=== PATIENT | female | born 1940 | race Caucasian/White ===

== ENCOUNTER 2016-10-23 08:07 | Outpatient (CLI) | payer MEDICARE ==
[2016-10-23 09:17] LABS: ALT (SGPT) 14 U/L (0-55); AST (SGOT) 16 U/L (5-34); Alkaline Phosphatase 58 U/L (40-150); Anion Gap 15 mmol/L (10-20); BUN (Urea Nitrogen) 13 mg/dL (9.8-20.1); Bilirubin, Total 0.7 mg/dL (0.2-1.2); Calc. Creatinine Clearance 0 mL/min (70-130); Calcium 9.1 mg/dL (7.8-10.44); Carbon Dioxide 28 mmol/L (23-31); Chloride 104 mmol/L (98-107); Cholesterol 222 mg/dL (< 200 Desired); Estimated GFR-MDRD 62; Globulin 2.9 g/dL (2.4-3.5); Glucose 99 mg/dL (83-110); HDL Cholesterol 73 mg/dL (>60 Neg Risk); LDL Cholesterol, Calculated 135 mg/dL; Potassium 4.9 mmol/L (3.5-5.1); Protein, Total 6.9 g/dL (5.8-8.1); Sodium 142 mmol/L (136-145); Triglycerides 70 mg/dL (Less than 150)
== END 2016-10-23 08:08 ==
LOC: MADLABBHPM 08:07
PROVIDERS: ATTEND Family Medicine
DX: E03.9 Hypothyroidism, unspecified (principal)
CPT/HCPCS: 36415; 80053; 80061; 84443

== ENCOUNTER 2017-07-30 10:15 | Outpatient (CLI) | payer MEDICARE ==
--- NOTE | 2017-07-30 11:54 | RAD ---
TWO VIEWS CHEST: Date: 07-30-17 Comparison: None. History: Pleuritic chest pain. FINDINGS: No pneumothorax, pleural fluid, focal consolidation or alveolar edema. Cardiac silhouette is promine nt on the lateral view. There is multilevel disc space narrowing and anterior osteophyte formation w ithin the mid/distal thoracic spine. The lungs are mildly hyperinflated with mild increased intersti tial density. IMPRESSION: Chronic appearing findings as detailed above. No focal consolidation or alveolar edema. POS: [facility]
== END 2017-07-30 10:16 | disposition home or self-care (01) ==
LOC: MADRAD 10:15
PROVIDERS: ATTEND Family Medicine
DX: R07.81 Pleurodynia (principal)
CPT/HCPCS: 71020

== ENCOUNTER 2019-05-07 15:27 | Outpatient (CLI) | payer MEDICARE ==
[2019-05-07 16:00] LABS: Anion Gap 16 mmol/L (10-20); BUN (Urea Nitrogen) 19 mg/dL (9.8-20.1); Calc. Creatinine Clearance 0 mL/min (70-130); Calcium 8.5 mg/dL (7.8-10.44); Carbon Dioxide 28 mmol/L (23-31); Chloride 99 mmol/L (98-107); Estimated GFR-MDRD 60; Glucose 99 mg/dL (83-110); Potassium 3.3 mmol/L (3.5-5.1); Sodium 140 mmol/L (136-145)
== END 2019-05-07 15:28 | disposition home or self-care (01) ==
LOC: MADLABBHPM 15:27
PROVIDERS: ATTEND Family Medicine
DX: E87.6 Hypokalemia (principal); R60.0 Localized edema
CPT/HCPCS: 36415; 80048

== ENCOUNTER 2019-08-13 09:49 | Outpatient (CLI) | payer MEDICARE ==
[2019-08-13 10:12] LABS: Anion Gap 14 mmol/L (10-20); BUN (Urea Nitrogen) 18 mg/dL (9.8-20.1); Calc. Creatinine Clearance 0 mL/min (70-130); Calcium 8.7 mg/dL (7.8-10.44); Carbon Dioxide 30 mmol/L (23-31); Chloride 102 mmol/L (98-107); Estimated GFR-MDRD 48; Glucose 122 mg/dL (83-110); Potassium 3.7 mmol/L (3.5-5.1); Sodium 142 mmol/L (136-145)
== END 2019-08-13 09:50 | disposition home or self-care (01) ==
LOC: MADLABBHPM 09:49
PROVIDERS: ATTEND Family Medicine
DX: R60.0 Localized edema (principal); E87.6 Hypokalemia
CPT/HCPCS: 36415; 80048

== ENCOUNTER 2019-09-12 10:45 | Outpatient (CLI) | payer MEDICARE ==
[2019-09-12 11:28] LABS: ALT (SGPT) 9 U/L (8-55); AST (SGOT) 14 U/L (5-34); Alkaline Phosphatase 74 U/L (40-110); Anion Gap 14 mmol/L (10-20); BUN (Urea Nitrogen) 23 mg/dL (9.8-20.1); Bilirubin, Total 0.4 mg/dL (0.2-1.2); Calc. Creatinine Clearance 0 mL/min (70-130); Calcium 8.8 mg/dL (7.8-10.44); Carbon Dioxide 25 mmol/L (23-31); Cardiac Risk 3.2 (Less than 4.5); Chloride 109 mmol/L (98-107); Cholesterol 179 mg/dl (< 200 Desired); Estimated GFR-MDRD 59; Globulin 3.1 g/dL (2.4-3.5); Glucose 111 mg/dL (83-110); HDL Cholesterol 56 mg/dL (>60 Neg Risk); LDL Cholesterol, Calculated 112 mg/dL; Potassium 4.6 mmol/L (3.5-5.1); Protein, Total 7.1 g/dL (6.0-8.3); Sodium 143 mmol/L (136-145); Triglycerides 53 mg/dL (Less than 150)
[2019-09-12 13:10] LABS: White Blood Cell (WBC) Count 9.1 thou/uL (4.8-10.8)
[2019-09-12 13:11] LABS: Hemoglobin 5.9 g/dL (12.0-16.0); Mean Corpuscular HGB CONC 26.1 g/dL (32.0-36.0); Mean Corpuscular Hemoglobin 16.1 pg (27.0-31.0); Mean Corpuscular Volume 61.3 fL (78.0-98.0)
[2019-09-12 13:12] LABS: Manual Diff?? YES; Mean Platelet Volume 9.6 fL (7.4-10.4); Platelet Count 305 thou/uL (130-400); RBC Distribution Width 19.3 % (11.5-14.5)
[2019-09-12 13:13] LABS: Anisocytosis MODERATE=16-30 cells (100X) (0-5/hpf); Eosinophils 3 % (0-10); Hypochromia MODERATE=16-30 cells (100X) (0-5/hpf); Lymphocytes 18 % (21-51); MDiff Complete? YES; Microcytosis MODERATE=15-30 cells (100X) (0-5/hpf); Monocytes 5 % (0-10); Neutrophil 74 % (42-75); Ovalocytes SLIGHT = 2-5 cells (100X) (0-1/hpf); Poikilocytosis SLIGHT = 6-15 cells (100X) (0-5/hpf)
[2019-09-12 13:14] LABS: Tear Drops SLIGHT = 2-5 cells (100X) (0-1/hpf)
[2019-09-12 15:26] LABS: Iron 16 ug/dL (50-170)
[2019-09-12 15:43] LABS: Ferritin Less than 2.00 ng/mL (10-291)
== END 2019-09-12 10:46 | disposition home or self-care (01) ==
LOC: MADLAB 10:45
PROVIDERS: ATTEND Family Medicine
DX: G25.81 Restless legs syndrome (principal); E03.9 Hypothyroidism, unspecified; E78.00 Pure hypercholesterolemia, unspecified; I10 Essential (primary) hypertension
CPT/HCPCS: 36415; 80053; 80061; 82728; 83540; 84443; 85025; 85060

== ENCOUNTER 2019-09-12 13:08 | Emergency (ER) | payer MEDICARE ==
[~2019-09-12 13:08] MED LIST: Sodium Chloride 0.9% 500 ML BAG ONE
[2019-09-12 13:52] LABS: PTT 27.2 SEC (22.9-36.1); Prothrombin Time 13.5 SEC (12.0-14.7)
[2019-09-12 14:03] LABS: ALT (SGPT) 8 U/L (8-55); AST (SGOT) 13 U/L (5-34); Albumin 3.7 g/dL (3.4-4.8); Alkaline Phosphatase 67 U/L (40-110); Anion Gap 13 mmol/L (10-20); BUN (Urea Nitrogen) 23 mg/dL (9.8-20.1); Bilirubin, Total 0.4 mg/dL (0.2-1.2); Calc. Creatinine Clearance 0 mL/min (70-130); Calcium 8.6 mg/dL (7.8-10.44); Carbon Dioxide 25 mmol/L (23-31); Chloride 108 mmol/L (98-107); Estimated GFR-MDRD 57; Globulin 3.2 g/dL (2.4-3.5); Glucose 128 mg/dL (83-110); Protein, Total 6.9 g/dL (6.0-8.3); Sodium 142 mmol/L (136-145)
[2019-09-12 14:05] LABS: #Basophils 0.1 thou/uL (0.0-0.2); #Eosinphils 0.4 thou/uL (0.0-0.7); #Lymphocytes 1.3 thou/uL (1.20-3.40); #Monocytes 0.6 thou/uL (0.11-0.59); #Neutrophils 4.8 thou/uL (1.40-6.50); %Basophils 1.7 % (0.0-1.0); %Eosinophils 5.7 % (0.0-10.0); %Lymphocytes 17.6 % (21.0-51.0); %Monocytes 7.7 % (0.0-10.0); %Neutrophils 67.3 % (42.0-75.0); Hemoglobin 5.4 g/dL (12.0-16.0); Mean Corpuscular HGB CONC 26.1 g/dL (32.0-36.0); Mean Corpuscular Hemoglobin 16.2 pg (27.0-31.0); Mean Corpuscular Volume 62.2 fL (78.0-98.0); Mean Platelet Volume 10.2 fL (7.4-10.4); Platelet Count 274 thou/uL (130-400); RBC Distribution Width 19.6 % (11.5-14.5); Red Blood Cell (RBC) Count 3.34 mill/uL (4.20-5.40); White Blood Cell (WBC) Count 7.1 thou/uL (4.8-10.8)
[2019-09-12] MEDS ORDERED: Furosemide 20 MG/2 ML VIAL ONE (14:26)
--- NOTE | 2019-09-12 14:32 | RAD ---
Exam: Chest one view: HISTORY: Dyspnea COMPARISON: 07/30/2017 FINDINGS: Minimal cardiomegaly with bilateral vascular congestion. No confluent lobar pneumonia. Less than opti mal inspiration. IMPRESSION: Cardiomegaly with bilateral vascular congestion. No confluent pneumonia.
== END 2019-09-12 15:27 | disposition short-term general hospital (02) ==
LOC: MADERS 13:08
DX: E87.70 Fluid overload, unspecified (principal); D64.9 Anemia, unspecified; E03.9 Hypothyroidism, unspecified; I10 Essential (primary) hypertension; F41.9 Anxiety disorder, unspecified; Z79.899 Other long term (current) drug therapy
CPT/HCPCS: 36430; 71045; 80061; 82274; 82728; 83540; 83880; 84484; 85610; 85730; 86850; 86900; 86901; 86920; 93005; P9016; 36415; 80053; 84443; 85025; 85060; 96374; J1940; J7050

== ENCOUNTER 2019-09-28 14:36 | Outpatient (CLI) | payer MEDICARE ==
[2019-09-28 14:51] LABS: #Basophils 0.1 thou/uL (0.0-0.2); #Eosinphils 0.4 thou/uL (0.0-0.7); #Lymphocytes 1.8 thou/uL (1.20-3.40); #Monocytes 0.7 thou/uL (0.11-0.59); #Neutrophils 5.5 thou/uL (1.40-6.50); %Basophils 1.3 % (0.0-1.0); %Lymphocytes 21.3 % (21.0-51.0); %Monocytes 7.7 % (0.0-10.0); %Neutrophils 64.7 % (42.0-75.0); Anisocytosis SLIGHT = 6-15 cells (100X) (0-5/hpf); Hemoglobin 10.2 g/dL (12.0-16.0); Hypochromia MODERATE=16-30 cells (100X) (0-5/hpf); MDiff Complete? YES; Mean Corpuscular HGB CONC 27.5 g/dL (32.0-36.0); Mean Corpuscular Hemoglobin 21.4 pg (27.0-31.0); Mean Corpuscular Volume 77.7 fL (78.0-98.0); Mean Platelet Volume 7.8 fL (7.4-10.4); Microcytosis SLIGHT = 6-15 cells (100X) (0-5/hpf); Ovalocytes SLIGHT = 2-5 cells (100X) (0-1/hpf); Platelet Count 395 thou/uL (130-400); Platelet Morphology Comment Appears Adequate; RBC Distribution Width 30.9 % (11.5-14.5); Red Blood Cell (RBC) Count 4.77 mill/uL (4.20-5.40); White Blood Cell (WBC) Count 8.6 thou/uL (4.8-10.8)
== END 2019-09-28 14:37 | disposition home or self-care (01) ==
LOC: MADLAB 14:36
PROVIDERS: ATTEND Family Medicine
DX: D64.9 Anemia, unspecified (principal)
CPT/HCPCS: 36415; 85025

== ENCOUNTER 2020-09-26 08:45 | Emergency (ER) | payer MEDICARE ==
--- NOTE | 2020-09-26 09:25 | RAD ---
XR Chest 1 View Portable History: Weakness Comparison: Radiograph September 12, 2019 Findings: Heart size mildly enlarged. Trace effusions. Mild pulmonary venous congestion. No pneumotho rax. Impression: Cardiomegaly and mild pulmonary venous congestion.
[2020-09-26 09:30] LABS: #Basophils 0.1 thou/uL (0.0-0.2); #Eosinphils 0.3 thou/uL (0.0-0.7); #Lymphocytes 1.5 thou/uL (1.20-3.40); #Monocytes 0.6 thou/uL (0.11-0.59); #Neutrophils 4.6 thou/uL (1.40-6.50); %Basophils 1.4 % (0.0-1.0); %Eosinophils 4.3 % (0.0-10.0); %Lymphocytes 21.1 % (21.0-51.0); %Monocytes 8.2 % (0.0-10.0); Hemoglobin 6.1 g/dL (12.0-16.0); Mean Corpuscular HGB CONC 29.1 g/dL (32.0-36.0); Mean Corpuscular Hemoglobin 20.8 pg (27.0-31.0); Mean Corpuscular Volume 71.3 fL (78.0-98.0); Mean Platelet Volume 9.2 fL (7.4-10.4); Platelet Count 205 thou/uL (130-400); RBC Distribution Width 20.4 % (11.5-14.5); Red Blood Cell (RBC) Count 2.95 mill/uL (4.20-5.40)
[2020-09-26 09:45] LABS: ALT (SGPT) 22 U/L (8-55); AST (SGOT) 20 U/L (5-34); Albumin 3.3 g/dL (3.4-4.8); Alkaline Phosphatase 59 U/L (40-110); Anion Gap 14 mmol/L (10-20); BUN (Urea Nitrogen) 26 mg/dL (9.8-20.1); Bilirubin, Total 0.4 mg/dL (0.2-1.2); Calc. Creatinine Clearance 0 mL/min (70-130); Carbon Dioxide 23 mmol/L (23-31); Chloride 110 mmol/L (98-107); Globulin 2.9 g/dL (2.4-3.5); Glucose 107 mg/dL (83-110); Potassium 3.7 mmol/L (3.5-5.1); Protein, Total 6.2 g/dL (6.0-8.3); Sodium 143 mmol/L (136-145)
[2020-09-26 09:56] LABS: Anisocytosis SLIGHT = 6-15 cells (100X) (0-5/hpf); Hypochromia SLIGHT = 6-15 cells (100X) (0-5/hpf); Ovalocytes SLIGHT = 2-5 cells (100X) (0-1/hpf); Poikilocytosis SLIGHT = 6-15 cells (100X) (0-5/hpf); Schistocytes SLIGHT = 2-5 cells (100X) (0-1/hpf)
== END 2020-09-26 11:20 | disposition short-term general hospital (02) ==
LOC: MADERS 08:45
DX: D64.9 Anemia, unspecified (principal); I48.91 Unspecified atrial fibrillation; M54.2 Cervicalgia; R00.1 Bradycardia, unspecified; E03.9 Hypothyroidism, unspecified; I10 Essential (primary) hypertension
CPT/HCPCS: 71045; 80053; 82274; 83605; 84484; 85025; 93005; 94760

== ENCOUNTER 2022-01-01 19:33 | Inpatient (IN) | payer MEDICARE ==
[2022-01-01] MEDS ORDERED: Milk Of Magnesia 30 ML UDCUP PO PRN (21:36)
[2022-01-01] MEDS ORDERED: cloNIDine 0.1 MG TAB PO PRN (21:36)
[2022-01-01] MEDS ORDERED: Calcium Carbonate 500 MG ChewTAB PO PRN (21:36)
[2022-01-01 21:38] VITALS: BMI 25.4
[2022-01-01] MEDS: traMADol HCl 50 MG TAB PO SCH (23:42)
[2022-01-02] MEDS: Levothyroxine Sodium 75 MCG TAB PO SCH (05:07)
[2022-01-02] MEDS: traMADol HCl 50 MG TAB PO SCH ×2 (05:09→11:43)
[2022-01-02 05:50] LABS: #Basophils 0.1 thou/uL (0.0-0.2); #Eosinphils 0.3 thou/uL (0.0-0.7); #Monocytes 0.5 thou/uL (0.11-0.59); #Neutrophils 3.5 thou/uL (1.40-6.50); %Basophils 2.1 % (0.0-1.0); %Eosinophils 6.2 % (0.0-10.0); %Lymphocytes 17.6 % (21.0-51.0); %Monocytes 9.7 % (0.0-10.0); %Neutrophils 64.5 % (42.0-75.0); Hemoglobin 11.7 g/dL (12.0-16.0); Mean Corpuscular HGB CONC 31.6 g/dL (32.0-36.0); Mean Corpuscular Hemoglobin 30.4 pg (27.0-31.0); Mean Corpuscular Volume 96.3 fL (78.0-98.0); Mean Platelet Volume 8.2 fL (7.4-10.4); Platelet Count 223 thou/uL (130-400); RBC Distribution Width 17.6 % (11.5-14.5); Red Blood Cell (RBC) Count 3.85 mill/uL (4.20-5.40); White Blood Cell (WBC) Count 5.4 thou/uL (4.8-10.8)
[2022-01-02 06:15] LABS: Anion Gap 15 mmol/L (10-20); BUN (Urea Nitrogen) 14 mg/dL (9.8-20.1); Calc. Creatinine Clearance 60 mL/min (70-130); Calcium 9.2 mg/dL (7.8-10.44); Carbon Dioxide 33 mmol/L (23-31); Chloride 94 mmol/L (98-107); Glucose 98 mg/dL (83-110); Potassium 3.6 mmol/L (3.5-5.1); Sodium 138 mmol/L (136-145)
[2022-01-02] MEDS: Docusate 100 MG CAP PO SCH ×2 (08:04→20:17)
[2022-01-02] MEDS: Furosemide 20 MG TAB PO SCH (08:04)
[2022-01-02] MEDS: Aspirin 81 mg Enteric Coated Tablet PO SCH ×2 (08:04→20:17)
[2022-01-02] MEDS: Cholecalciferol 1,000 UNITS (25 MCG) TAB PO SCH (08:04)
[2022-01-02] MEDS: Ferrous Sulfate 325 MG TAB PO SCH (08:04)
[2022-01-02] MEDS: Saccharomyces boulardii 250 MG CAP PO SCH (08:04)
[2022-01-02] MEDS: Senokot 8.6 MG TAB PO SCH ×2 (08:04→20:17)
[2022-01-02] MEDS: hydrALAZINE 25 MG TAB PO SCH ×3 (08:04→20:18)
[2022-01-02] MEDS: traMADol HCl 50 MG TAB PO PRN (08:05)
[2022-01-02] MEDS: Polyethylene Glycol 3350 17 GM Packet PO SCH (08:06)
[2022-01-02] MEDS ORDERED: Enoxaparin Sodium 30 MG/0.3 ML SYRINGE SC SCH (09:00)
[2022-01-02] MEDS: Acetaminophen 325 MG TAB PO PRN (10:01)
[2022-01-02 14:24] LABS: SARS-CoV-2 PCR by NAA Not Detected (NotDetected)
[2022-01-02] MEDS: HYDROcodone/Acetaminophen 5/325 mg Tablet PO SCH ×2 (18:08→23:54)
[2022-01-02] MEDS: Citalopram 20 MG TAB PO SCH (20:17)
[2022-01-03] MEDS: HYDROcodone/Acetaminophen 5/325 mg Tablet PO SCH ×3 (05:25→17:36)
[2022-01-03] MEDS: Levothyroxine Sodium 75 MCG TAB PO SCH (05:26)
[2022-01-03] MEDS: Aspirin 81 mg Enteric Coated Tablet PO SCH ×2 (08:13→21:21)
[2022-01-03] MEDS: Furosemide 20 MG TAB PO SCH (08:13)
[2022-01-03] MEDS: Enoxaparin Sodium 40 MG/0.4 ML SYRINGE SC SCH (08:13)
[2022-01-03] MEDS: Docusate 100 MG CAP PO SCH ×2 (08:13→21:18)
[2022-01-03] MEDS: Ferrous Sulfate 325 MG TAB PO SCH (08:13)
[2022-01-03] MEDS: hydrALAZINE 25 MG TAB PO SCH ×3 (08:13→21:18)
[2022-01-03] MEDS: Saccharomyces boulardii 250 MG CAP PO SCH (08:13)
[2022-01-03] MEDS: Senokot 8.6 MG TAB PO SCH ×2 (08:13→21:21)
[2022-01-03] MEDS: Cholecalciferol 1,000 UNITS (25 MCG) TAB PO SCH (08:13)
[2022-01-03] MEDS: Polyethylene Glycol 3350 17 GM Packet PO SCH (08:14)
[2022-01-03] MEDS: traMADol HCl 50 MG TAB PO PRN ×2 (13:55→21:19)
[2022-01-03] MEDS: Citalopram 20 MG TAB PO SCH (21:18)
[2022-01-04] MEDS: HYDROcodone/Acetaminophen 5/325 mg Tablet PO SCH ×4 (00:21→17:53)
[2022-01-04] MEDS: Levothyroxine Sodium 75 MCG TAB PO SCH (06:21)
[2022-01-04] MEDS: Docusate 100 MG CAP PO SCH ×2 (09:25→22:11)
[2022-01-04] MEDS: Polyethylene Glycol 3350 17 GM Packet PO SCH (09:25)
[2022-01-04] MEDS: Saccharomyces boulardii 250 MG CAP PO SCH (09:26)
[2022-01-04] MEDS: Aspirin 81 mg Enteric Coated Tablet PO SCH ×2 (09:26→22:11)
[2022-01-04] MEDS: Cholecalciferol 1,000 UNITS (25 MCG) TAB PO SCH (09:26)
[2022-01-04] MEDS: hydrALAZINE 25 MG TAB PO SCH ×3 (09:26→22:11)
[2022-01-04] MEDS: Furosemide 20 MG TAB PO SCH (09:26)
[2022-01-04] MEDS: Ferrous Sulfate 325 MG TAB PO SCH (09:26)
[2022-01-04] MEDS: Senokot 8.6 MG TAB PO SCH ×2 (09:27→22:12)
[2022-01-04] MEDS: Enoxaparin Sodium 40 MG/0.4 ML SYRINGE SC SCH (09:27)
[2022-01-04] MEDS: Acetaminophen 325 MG TAB PO PRN (15:11)
[2022-01-04] MEDS ORDERED: Thiamine 100 MG TAB PO SCH (21:45)
[2022-01-04] MEDS: Citalopram 20 MG TAB PO SCH ×2 (22:11→22:19)
[2022-01-05] MEDS: HYDROcodone/Acetaminophen 5/325 mg Tablet PO SCH ×4 (00:55→17:41)
[2022-01-05] MEDS: Levothyroxine Sodium 75 MCG TAB PO SCH (05:46)
[2022-01-05] MEDS: Saccharomyces boulardii 250 MG CAP PO SCH (08:39)
[2022-01-05] MEDS: Senokot 8.6 MG TAB PO SCH ×2 (08:40→21:38)
[2022-01-05] MEDS: hydrALAZINE 25 MG TAB PO SCH ×3 (08:40→21:39)
[2022-01-05] MEDS: Cholecalciferol 1,000 UNITS (25 MCG) TAB PO SCH (08:40)
[2022-01-05] MEDS: Docusate 100 MG CAP PO SCH ×2 (08:40→21:38)
[2022-01-05] MEDS: Aspirin 81 mg Enteric Coated Tablet PO SCH ×2 (08:40→21:38)
[2022-01-05] MEDS: Acetaminophen 325 MG TAB PO PRN (08:40)
[2022-01-05] MEDS: Polyethylene Glycol 3350 17 GM Packet PO SCH (08:41)
[2022-01-05] MEDS: Furosemide 20 MG TAB PO SCH (08:41)
[2022-01-05] MEDS: Enoxaparin Sodium 40 MG/0.4 ML SYRINGE SC SCH (08:42)
[2022-01-05] MEDS: Ferrous Sulfate 325 MG TAB PO SCH (08:44)
[2022-01-05] MEDS: Citalopram 20 MG TAB PO SCH (21:38)
[2022-01-06] MEDS: HYDROcodone/Acetaminophen 5/325 mg Tablet PO SCH ×5 (00:23→23:23)
[2022-01-06] MEDS: Levothyroxine Sodium 75 MCG TAB PO SCH (05:53)
[2022-01-06] MEDS: Saccharomyces boulardii 250 MG CAP PO SCH (08:13)
[2022-01-06] MEDS: Enoxaparin Sodium 40 MG/0.4 ML SYRINGE SC SCH (08:14)
[2022-01-06] MEDS: Ferrous Sulfate 325 MG TAB PO SCH (08:14)
[2022-01-06] MEDS: Furosemide 20 MG TAB PO SCH (08:14)
[2022-01-06] MEDS: Cholecalciferol 1,000 UNITS (25 MCG) TAB PO SCH (08:14)
[2022-01-06] MEDS: Aspirin 81 mg Enteric Coated Tablet PO SCH ×2 (08:14→20:43)
[2022-01-06] MEDS: Docusate 100 MG CAP PO SCH ×2 (08:14→20:43)
[2022-01-06] MEDS: hydrALAZINE 25 MG TAB PO SCH ×3 (08:14→20:43)
[2022-01-06] MEDS: Senokot 8.6 MG TAB PO SCH ×2 (08:15→20:43)
[2022-01-06] MEDS: Polyethylene Glycol 3350 17 GM Packet PO SCH (08:15)
[2022-01-06] MEDS: traMADol HCl 50 MG TAB PO PRN ×2 (08:20→20:42)
[2022-01-06] MEDS: Citalopram 20 MG TAB PO SCH (20:43)
[2022-01-07] MEDS: HYDROcodone/Acetaminophen 5/325 mg Tablet PO SCH ×4 (05:00→23:36)
[2022-01-07] MEDS: Levothyroxine Sodium 75 MCG TAB PO SCH (05:01)
[2022-01-07] MEDS: traMADol HCl 50 MG TAB PO PRN ×2 (05:55→19:07)
[2022-01-07] MEDS: Senokot 8.6 MG TAB PO SCH ×2 (09:36→09:37)
[2022-01-07] MEDS: Ferrous Sulfate 325 MG TAB PO SCH (09:36)
[2022-01-07] MEDS: Furosemide 20 MG TAB PO SCH ×2 (09:36→09:37)
[2022-01-07] MEDS: Aspirin 81 mg Enteric Coated Tablet PO SCH ×2 (09:37→20:27)
[2022-01-07] MEDS: Saccharomyces boulardii 250 MG CAP PO SCH (09:37)
[2022-01-07] MEDS: hydrALAZINE 25 MG TAB PO SCH ×3 (09:37→20:30)
[2022-01-07] MEDS: Docusate 100 MG CAP PO SCH ×2 (09:38→20:30)
[2022-01-07] MEDS: Enoxaparin Sodium 40 MG/0.4 ML SYRINGE SC SCH (09:38)
[2022-01-07] MEDS: Cholecalciferol 1,000 UNITS (25 MCG) TAB PO SCH (09:38)
[2022-01-07] MEDS: Polyethylene Glycol 3350 17 GM Packet PO SCH (09:39)
[2022-01-07] MEDS: Acetaminophen 325 MG TAB PO PRN (09:51)
[2022-01-07] MEDS: Citalopram 20 MG TAB PO SCH (20:27)
[2022-01-08] MEDS: HYDROcodone/Acetaminophen 5/325 mg Tablet PO SCH ×3 (06:01→17:10)
[2022-01-08] MEDS: Levothyroxine Sodium 75 MCG TAB PO SCH (06:02)
[2022-01-08] MEDS: Polyethylene Glycol 3350 17 GM Packet PO SCH (08:24)
[2022-01-08] MEDS: Enoxaparin Sodium 40 MG/0.4 ML SYRINGE SC SCH (08:25)
[2022-01-08] MEDS: traMADol HCl 50 MG TAB PO PRN (08:26)
[2022-01-08] MEDS: Docusate 100 MG CAP PO SCH ×2 (08:26→21:12)
[2022-01-08] MEDS: hydrALAZINE 25 MG TAB PO SCH ×3 (08:26→21:12)
[2022-01-08] MEDS: Cholecalciferol 1,000 UNITS (25 MCG) TAB PO SCH (08:26)
[2022-01-08] MEDS: Ferrous Sulfate 325 MG TAB PO SCH (08:26)
[2022-01-08] MEDS: Senokot 8.6 MG TAB PO SCH ×2 (08:26→21:12)
[2022-01-08] MEDS: Furosemide 20 MG TAB PO SCH (08:27)
[2022-01-08] MEDS: Saccharomyces boulardii 250 MG CAP PO SCH (08:27)
[2022-01-08] MEDS: Aspirin 81 mg Enteric Coated Tablet PO SCH ×2 (08:27→21:11)
[2022-01-08] MEDS: Acetaminophen 325 MG TAB PO PRN (19:35)
[2022-01-08] MEDS: Citalopram 20 MG TAB PO SCH (21:11)
[2022-01-09] MEDS: HYDROcodone/Acetaminophen 5/325 mg Tablet PO SCH ×5 (00:05→23:39)
[2022-01-09] MEDS: traMADol HCl 50 MG TAB PO PRN ×2 (04:30→14:16)
[2022-01-09] MEDS: Levothyroxine Sodium 75 MCG TAB PO SCH (05:55)
[2022-01-09] MEDS: Furosemide 20 MG TAB PO SCH (08:49)
[2022-01-09] MEDS: hydrALAZINE 25 MG TAB PO SCH ×3 (08:49→20:51)
[2022-01-09] MEDS: Ferrous Sulfate 325 MG TAB PO SCH (08:49)
[2022-01-09] MEDS: Enoxaparin Sodium 40 MG/0.4 ML SYRINGE SC SCH (08:49)
[2022-01-09] MEDS: Saccharomyces boulardii 250 MG CAP PO SCH (08:49)
[2022-01-09] MEDS: Senokot 8.6 MG TAB PO SCH ×2 (08:49→20:51)
[2022-01-09] MEDS: Docusate 100 MG CAP PO SCH ×2 (08:49→20:51)
[2022-01-09] MEDS: Aspirin 81 mg Enteric Coated Tablet PO SCH ×2 (08:49→20:50)
[2022-01-09] MEDS: Cholecalciferol 1,000 UNITS (25 MCG) TAB PO SCH (08:50)
[2022-01-09] MEDS: Polyethylene Glycol 3350 17 GM Packet PO SCH (08:50)
[2022-01-09 14:43] LABS: SARS-CoV-2 PCR by NAA Not Detected (NotDetected)
[2022-01-09] MEDS: tiZANidine HCl 4 MG TAB PO PRN (19:22)
[2022-01-09] MEDS: Citalopram 20 MG TAB PO SCH (20:52)
[2022-01-10] MEDS: HYDROcodone/Acetaminophen 5/325 mg Tablet PO SCH ×4 (06:05→23:26)
[2022-01-10] MEDS: Levothyroxine Sodium 75 MCG TAB PO SCH (06:05)
[2022-01-10] MEDS: traMADol HCl 50 MG TAB PO PRN (08:19)
[2022-01-10] MEDS: Enoxaparin Sodium 40 MG/0.4 ML SYRINGE SC SCH (08:19)
[2022-01-10] MEDS: Saccharomyces boulardii 250 MG CAP PO SCH (08:20)
[2022-01-10] MEDS: Docusate 100 MG CAP PO SCH ×2 (08:20→20:59)
[2022-01-10] MEDS: hydrALAZINE 25 MG TAB PO SCH ×3 (08:20→20:59)
[2022-01-10] MEDS: Furosemide 20 MG TAB PO SCH (08:20)
[2022-01-10] MEDS: Cholecalciferol 1,000 UNITS (25 MCG) TAB PO SCH (08:20)
[2022-01-10] MEDS: Senokot 8.6 MG TAB PO SCH ×2 (08:20→20:59)
[2022-01-10] MEDS: Aspirin 81 mg Enteric Coated Tablet PO SCH ×2 (08:20→20:59)
[2022-01-10] MEDS: Polyethylene Glycol 3350 17 GM Packet PO SCH (08:21)
[2022-01-10] MEDS: Ferrous Sulfate 325 MG TAB PO SCH (08:25)
[2022-01-10] MEDS: tiZANidine HCl 4 MG TAB PO PRN (20:59)
[2022-01-10] MEDS: Citalopram 20 MG TAB PO SCH (20:59)
[2022-01-11] MEDS: HYDROcodone/Acetaminophen 5/325 mg Tablet PO SCH ×4 (05:48→23:26)
[2022-01-11] MEDS: Levothyroxine Sodium 75 MCG TAB PO SCH (05:49)
[2022-01-11] MEDS: Acetaminophen 325 MG TAB PO PRN (08:30)
[2022-01-11] MEDS: Docusate 100 MG CAP PO SCH ×2 (08:31→20:09)
[2022-01-11] MEDS: Furosemide 20 MG TAB PO SCH (08:31)
[2022-01-11] MEDS: hydrALAZINE 25 MG TAB PO SCH ×3 (08:31→20:10)
[2022-01-11] MEDS: Aspirin 81 mg Enteric Coated Tablet PO SCH ×2 (08:31→20:09)
[2022-01-11] MEDS: Senokot 8.6 MG TAB PO SCH ×2 (08:31→20:10)
[2022-01-11] MEDS: Cholecalciferol 1,000 UNITS (25 MCG) TAB PO SCH (08:31)
[2022-01-11] MEDS: Enoxaparin Sodium 40 MG/0.4 ML SYRINGE SC SCH (08:31)
[2022-01-11] MEDS: Saccharomyces boulardii 250 MG CAP PO SCH (08:31)
[2022-01-11] MEDS: Polyethylene Glycol 3350 17 GM Packet PO SCH (08:32)
[2022-01-11] MEDS: Ferrous Sulfate 325 MG TAB PO SCH (08:32)
[2022-01-11] MEDS: traMADol HCl 50 MG TAB PO PRN (15:46)
[2022-01-11] MEDS: tiZANidine HCl 4 MG TAB PO PRN (20:09)
[2022-01-11] MEDS: Citalopram 20 MG TAB PO SCH (20:10)
[2022-01-12] MEDS: HYDROcodone/Acetaminophen 5/325 mg Tablet PO SCH ×3 (05:18→17:57)
[2022-01-12] MEDS: Levothyroxine Sodium 75 MCG TAB PO SCH (05:18)
[2022-01-12] MEDS: Furosemide 20 MG TAB PO SCH (09:20)
[2022-01-12] MEDS: Cholecalciferol 1,000 UNITS (25 MCG) TAB PO SCH (09:20)
[2022-01-12] MEDS: Docusate 100 MG CAP PO SCH ×2 (09:20→20:44)
[2022-01-12] MEDS: hydrALAZINE 25 MG TAB PO SCH ×3 (09:20→20:45)
[2022-01-12] MEDS: Aspirin 81 mg Enteric Coated Tablet PO SCH ×2 (09:20→20:45)
[2022-01-12] MEDS: Enoxaparin Sodium 40 MG/0.4 ML SYRINGE SC SCH (09:20)
[2022-01-12] MEDS: Ferrous Sulfate 325 MG TAB PO SCH (09:20)
[2022-01-12] MEDS: Polyethylene Glycol 3350 17 GM Packet PO SCH (09:21)
[2022-01-12] MEDS: Saccharomyces boulardii 250 MG CAP PO SCH (09:21)
[2022-01-12] MEDS: Senokot 8.6 MG TAB PO SCH ×2 (09:21→20:44)
[2022-01-12] MEDS: traMADol HCl 50 MG TAB PO PRN (09:26)
[2022-01-12] MEDS: tiZANidine HCl 4 MG TAB PO PRN (20:44)
[2022-01-12] MEDS: Citalopram 20 MG TAB PO SCH (20:45)
[2022-01-13] MEDS: HYDROcodone/Acetaminophen 5/325 mg Tablet PO SCH ×4 (00:54→17:25)
[2022-01-13] MEDS: Levothyroxine Sodium 75 MCG TAB PO SCH (06:15)
[2022-01-13] MEDS: Enoxaparin Sodium 40 MG/0.4 ML SYRINGE SC SCH (09:02)
[2022-01-13] MEDS: hydrALAZINE 25 MG TAB PO SCH ×3 (09:03→21:04)
[2022-01-13] MEDS: Furosemide 20 MG TAB PO SCH (09:03)
[2022-01-13] MEDS: Senokot 8.6 MG TAB PO SCH ×2 (09:03→21:04)
[2022-01-13] MEDS: Saccharomyces boulardii 250 MG CAP PO SCH (09:03)
[2022-01-13] MEDS: Aspirin 81 mg Enteric Coated Tablet PO SCH ×2 (09:03→21:04)
[2022-01-13] MEDS: Docusate 100 MG CAP PO SCH ×2 (09:03→21:04)
[2022-01-13] MEDS: Ferrous Sulfate 325 MG TAB PO SCH (09:03)
[2022-01-13] MEDS: Cholecalciferol 1,000 UNITS (25 MCG) TAB PO SCH (09:03)
[2022-01-13] MEDS: Polyethylene Glycol 3350 17 GM Packet PO SCH (09:03)
[2022-01-13] MEDS: Citalopram 20 MG TAB PO SCH (21:03)
[2022-01-13] MEDS: tiZANidine HCl 4 MG TAB PO PRN (21:12)
[2022-01-14] MEDS: HYDROcodone/Acetaminophen 5/325 mg Tablet PO SCH ×3 (00:20→13:39)
[2022-01-14] MEDS: Levothyroxine Sodium 75 MCG TAB PO SCH (05:30)
[2022-01-14] MEDS: Enoxaparin Sodium 40 MG/0.4 ML SYRINGE SC SCH (08:07)
[2022-01-14] MEDS: hydrALAZINE 25 MG TAB PO SCH ×3 (08:08→21:15)
[2022-01-14] MEDS: Docusate 100 MG CAP PO SCH ×2 (08:08→21:16)
[2022-01-14] MEDS: Aspirin 81 mg Enteric Coated Tablet PO SCH ×2 (08:08→21:15)
[2022-01-14] MEDS: Polyethylene Glycol 3350 17 GM Packet PO SCH (08:08)
[2022-01-14] MEDS: Saccharomyces boulardii 250 MG CAP PO SCH (08:08)
[2022-01-14] MEDS: Senokot 8.6 MG TAB PO SCH ×2 (08:08→21:16)
[2022-01-14] MEDS: Furosemide 20 MG TAB PO SCH (08:08)
[2022-01-14] MEDS: Cholecalciferol 1,000 UNITS (25 MCG) TAB PO SCH (08:08)
[2022-01-14] MEDS: Ferrous Sulfate 325 MG TAB PO SCH (08:08)
[2022-01-14] MEDS: traMADol HCl 50 MG TAB PO PRN (08:11)
[2022-01-14] MEDS ORDERED: Acetaminophen 325 MG TAB PO PRN (16:55)
[2022-01-14] MEDS: Citalopram 20 MG TAB PO SCH (21:16)
[2022-01-14] MEDS: tiZANidine HCl 4 MG TAB PO PRN (21:19)
[2022-01-15] MEDS: Levothyroxine Sodium 75 MCG TAB PO SCH (06:01)
[2022-01-15] MEDS: HYDROcodone/Acetaminophen 5/325 mg Tablet PO PRN ×2 (08:54→22:53)
[2022-01-15] MEDS: Polyethylene Glycol 3350 17 GM Packet PO SCH (08:55)
[2022-01-15] MEDS: Enoxaparin Sodium 40 MG/0.4 ML SYRINGE SC SCH (08:55)
[2022-01-15] MEDS: Furosemide 20 MG TAB PO SCH (08:56)
[2022-01-15] MEDS: hydrALAZINE 25 MG TAB PO SCH ×3 (08:56→21:02)
[2022-01-15] MEDS: Cholecalciferol 1,000 UNITS (25 MCG) TAB PO SCH (08:56)
[2022-01-15] MEDS: Docusate 100 MG CAP PO SCH ×2 (08:56→21:02)
[2022-01-15] MEDS: Saccharomyces boulardii 250 MG CAP PO SCH (08:56)
[2022-01-15] MEDS: Aspirin 81 mg Enteric Coated Tablet PO SCH ×2 (08:56→21:02)
[2022-01-15] MEDS: Senokot 8.6 MG TAB PO SCH ×2 (08:56→21:02)
[2022-01-15] MEDS: Ferrous Sulfate 325 MG TAB PO SCH (08:56)
[2022-01-15] MEDS: Citalopram 20 MG TAB PO SCH (21:02)
[2022-01-15] MEDS: tiZANidine HCl 4 MG TAB PO PRN (21:02)
[2022-01-16] MEDS: HYDROcodone/Acetaminophen 5/325 mg Tablet PO PRN (05:54)
[2022-01-16] MEDS: Levothyroxine Sodium 75 MCG TAB PO SCH (05:55)
[2022-01-16] MEDS: Aspirin 81 mg Enteric Coated Tablet PO SCH ×2 (08:33→20:12)
[2022-01-16] MEDS: Saccharomyces boulardii 250 MG CAP PO SCH (08:33)
[2022-01-16] MEDS: Ferrous Sulfate 325 MG TAB PO SCH (08:33)
[2022-01-16] MEDS: hydrALAZINE 25 MG TAB PO SCH ×3 (08:33→20:11)
[2022-01-16] MEDS: Docusate 100 MG CAP PO SCH ×2 (08:33→20:10)
[2022-01-16] MEDS: Furosemide 20 MG TAB PO SCH (08:33)
[2022-01-16] MEDS: Cholecalciferol 1,000 UNITS (25 MCG) TAB PO SCH (08:33)
[2022-01-16] MEDS: Senokot 8.6 MG TAB PO SCH ×2 (08:33→20:11)
[2022-01-16] MEDS: Polyethylene Glycol 3350 17 GM Packet PO SCH (08:33)
[2022-01-16] MEDS: traMADol HCl 50 MG TAB PO PRN (09:31)
[2022-01-16 15:26] LABS: SARS-CoV-2 PCR by NAA Not Detected (NotDetected)
[2022-01-16] MEDS: Citalopram 20 MG TAB PO SCH (20:12)
[2022-01-16] MEDS: tiZANidine HCl 4 MG TAB PO PRN (20:37)
[2022-01-17] MEDS: Levothyroxine Sodium 75 MCG TAB PO SCH (05:48)
[2022-01-17] MEDS: traMADol HCl 50 MG TAB PO PRN (06:15)
[2022-01-17] MEDS ORDERED: hydrOXYzine 25 MG TAB PO PRN (06:19)
[2022-01-17] MEDS ORDERED: hydrOXYzine 25 MG TAB PO SCH (06:30)
[2022-01-17] MEDS: Cholecalciferol 1,000 UNITS (25 MCG) TAB PO SCH (08:05)
[2022-01-17] MEDS: Aspirin 81 mg Enteric Coated Tablet PO SCH ×2 (08:05→20:37)
[2022-01-17] MEDS: Ferrous Sulfate 325 MG TAB PO SCH (08:05)
[2022-01-17] MEDS: Docusate 100 MG CAP PO SCH ×2 (08:06→20:37)
[2022-01-17] MEDS: Furosemide 20 MG TAB PO SCH (08:06)
[2022-01-17] MEDS: Senokot 8.6 MG TAB PO SCH ×2 (08:06→20:37)
[2022-01-17] MEDS: Saccharomyces boulardii 250 MG CAP PO SCH (08:06)
[2022-01-17] MEDS: Triamcinolone 0.1% Cream 15 GM TUBE TOP SCH ×2 (08:07→20:40)
[2022-01-17] MEDS: Polyethylene Glycol 3350 17 GM Packet PO SCH (08:07)
[2022-01-17] MEDS: hydrALAZINE 25 MG TAB PO SCH ×4 (08:08→20:37)
[2022-01-17] MEDS: HYDROcodone/Acetaminophen 5/325 mg Tablet PO PRN (11:46)
[2022-01-17] MEDS: Citalopram 20 MG TAB PO SCH (20:38)
[2022-01-18] MEDS: Levothyroxine Sodium 75 MCG TAB PO SCH (06:23)
[2022-01-18] MEDS: Triamcinolone 0.1% Cream 15 GM TUBE TOP SCH (08:11)
[2022-01-18] MEDS: Polyethylene Glycol 3350 17 GM Packet PO SCH (08:12)
[2022-01-18] MEDS: Furosemide 20 MG TAB PO SCH (08:13)
[2022-01-18] MEDS: Docusate 100 MG CAP PO SCH (08:13)
[2022-01-18] MEDS: Saccharomyces boulardii 250 MG CAP PO SCH (08:13)
[2022-01-18] MEDS: Senokot 8.6 MG TAB PO SCH (08:13)
[2022-01-18] MEDS: Ferrous Sulfate 325 MG TAB PO SCH (08:13)
[2022-01-18] MEDS: hydrALAZINE 25 MG TAB PO SCH (08:13)
[2022-01-18] MEDS: Aspirin 81 mg Enteric Coated Tablet PO SCH (08:14)
[2022-01-18] MEDS: Cholecalciferol 1,000 UNITS (25 MCG) TAB PO SCH (08:14)
[2022-01-18 08:18] VITALS: BP 116/73; TEMP 98.3
== END 2022-01-18 11:15 | disposition home health service (06) | DRG 948 ==
LOC: MADMS 19:33
PROVIDERS: ADMIT Family Medicine; ATTEND Family Medicine
DX: R53.81 Other malaise (principal); I48.20 Chronic atrial fibrillation, unspecified; G89.18 Other acute postprocedural pain; K21.9 Gastro-esophageal reflux disease without esophagitis; Z66 Do not resuscitate; Z20.822 Contact with and (suspected) exposure to COVID-19; I10 Essential (primary) hypertension; E03.9 Hypothyroidism, unspecified; F41.8 Other specified anxiety disorders; D64.9 Anemia, unspecified; R21 Rash and other nonspecific skin eruption; M79.7 Fibromyalgia; Z74.09 Other reduced mobility; Z53.8 Procedure and treatment not carried out for other reasons; Z98.890 Other specified postprocedural states; Z90.49 Acquired absence of other specified parts of digestive tract; Z98.51 Tubal ligation status; Z79.82 Long term (current) use of aspirin; Z79.899 Other long term (current) drug therapy; Z87.81 Personal history of (healed) traumatic fracture; Z91.81 History of falling
CPT/HCPCS: 80048; 85025; J1650; U0003; U0005

== ENCOUNTER 2023-04-21 20:24 | Emergency (ER) | payer MEDICARE ==
[2023-04-21 22:02] LABS: Band 1 % (5-11); Hemoglobin 11.6 g/dL (12.0-16.0); Lymphocytes 35 % (21-51); MDiff Complete? YES; Mean Corpuscular HGB CONC 32.3 g/dL (32.0-36.0); Mean Corpuscular Hemoglobin 30.3 pg (27.0-31.0); Mean Corpuscular Volume 93.8 fl (78.0-98.0); Mean Platelet Volume 9.6 fL (7.4-10.4); Monocytes 9 % (0-10); Neutrophil 55 % (42-75); Platelet Adequacy Comment Appears Adequate; Platelet Count 242 10x3/uL (130-400); RBC Distribution Width 13.1 % (11.5-14.5); Red Blood Cell (RBC) Count 3.84 mill/uL (4.20-5.40); White Blood Cell (WBC) Count 7.3 10x3/uL (4.8-10.8)
[2023-04-21 22:03] LABS: ALT (SGPT) 12 U/L (8-55); AST (SGOT) 17 U/L (5-34); Albumin 3.9 g/dL (3.4-4.8); Alkaline Phosphatase 79 U/L (40-110); Anion Gap 14 mmol/L (10-20); BUN (Urea Nitrogen) 30 mg/dL (9.8-20.1); Bilirubin, Total 0.2 mg/dL (0.2-1.2); CK (CPK) 27 U/L (29-168); Calc. Creatinine Clearance 0 mL/min (70-130); Calcium 8.8 mg/dL (7.8-10.44); Carbon Dioxide 24 mmol/L (23-31); Chloride 110 mmol/L (98-107); Estimated GFR 47; Globulin 2.6 g/dL (2.4-3.5); Glucose 122 mg/dL (83-110); Potassium 3.8 mmol/L (3.5-5.1); Protein, Total 6.5 g/dL (5.8-8.1); Sodium 144 mmol/L (136-145)
== END 2023-04-22 01:32 | disposition short-term general hospital (02) ==
LOC: MADERS 20:24
DX: G45.9 Transient cerebral ischemic attack, unspecified (principal); I48.91 Unspecified atrial fibrillation; E03.9 Hypothyroidism, unspecified; I10 Essential (primary) hypertension; D50.9 Iron deficiency anemia, unspecified; G62.9 Polyneuropathy, unspecified; Z79.899 Other long term (current) drug therapy
CPT/HCPCS: 36416; 70450; 71045; 80053; 82550; 84484; 85025; 93005

== ENCOUNTER 2023-12-02 10:32 | Emergency (ER) | payer MEDICARE ==
[2023-12-02] MEDS ORDERED: Ibuprofen 800 MG TAB ONE (10:59)
[2023-12-02 11:28] LABS: Bilirubin Negative (Negative); Blood, Urine Negative (Negative); Clarity Clear (Clear); Glucose, Urine (Dipstick) Negative (Negative); Ketone, Urine Negative (Negative); Leukocyte Small (Negative); Nitrite Negative (Negative); Protein, Urine (Dipstick) Negative (Neg-Trace); Urobilinogen 0.2 mg/dL (Less than 2)
[2023-12-02 11:39] LABS: Bacteria/HPF 1+ HPF (None Seen); CAUTI Indications for Culture Dysuria,urgency,freq; RBC/HPF 0-3 HPF (0-3)
[2023-12-02 11:41] LABS: Urine Culture Reflex No No
[2023-12-02 11:44] LABS: #Basophils 0.1 thou/uL (0.0-0.2); #Eosinphils 0.1 thou/uL (0.0-0.7); #Lymphocytes 0.6 thou/uL (1.20-3.40); #Monocytes 0.5 thou/uL (0.11-0.59); #Neutrophils 2.9 thou/uL (1.40-6.50); %Basophils 1.9 % (0.0-1.0); %Eosinophils 1.7 % (0.0-10.0); %Lymphocytes 13.6 % (21.0-51.0); %Monocytes 12.7 % (0.0-10.0); %Neutrophils 70.1 % (42.0-75.0); ALT (SGPT) 10 U/L (8-55); AST (SGOT) 15 U/L (5-34); Alkaline Phosphatase 50 U/L (40-110); Anion Gap 13 mmol/L (10-20); Anisocytosis SLIGHT = 6-15 cells (100X) (0-5/hpf); BUN (Urea Nitrogen) 13 mg/dL (9.8-20.1); Bilirubin, Total 0.4 mg/dL (0.2-1.2); Calc. Creatinine Clearance 0 mL/min (70-130); Calcium 8.7 mg/dL (7.8-10.44); Carbon Dioxide 25 mmol/L (23-31); Chloride 105 mmol/L (98-107); Estimated GFR 67; Globulin 2.7 g/dL (2.4-3.5); Glucose 94 mg/dL (83-110); Hematocrit 28.1 % (36.0-47.0); Hemoglobin 8.4 g/dL (12.0-16.0); Hypochromia MODERATE=16-30 cells (100X) (0-5/hpf); MDiff Complete? YES; Mean Corpuscular HGB CONC 30.1 g/dL (32.0-36.0); Mean Corpuscular Volume 79.9 fl (78.0-98.0); Mean Platelet Volume 8.4 fL (7.4-10.4); Platelet Adequacy Comment Appears Adequate; Platelet Count 211 10x3/uL (130-400); Potassium 3.8 mmol/L (3.5-5.1); Protein, Total 6.7 g/dL (5.8-8.1); RBC Distribution Width 15.5 % (11.5-14.5); Red Blood Cell (RBC) Count 3.51 mill/uL (4.20-5.40); Sodium 139 mmol/L (136-145); White Blood Cell (WBC) Count 4.1 10x3/uL (4.8-10.8)
[2023-12-02 11:56] LABS: SARS-CoV-2 E Target Positive; SARS-CoV-2 N2 Target Positive; SARS-CoV-2 NAA Rapid Test DETECTED (NotDetected); SARS-CoV-2 RdRP gene Positive
== END 2023-12-02 12:15 | disposition home or self-care (01) ==
LOC: MADERS 10:32
DX: U07.1 COVID-19 (principal); D50.9 Iron deficiency anemia, unspecified; J06.9 Acute upper respiratory infection, unspecified; N39.0 Urinary tract infection, site not specified; E03.9 Hypothyroidism, unspecified; I10 Essential (primary) hypertension; Z79.899 Other long term (current) drug therapy
CPT/HCPCS: 36415; 80053; 81001; 85025; 87804; 93005; U0002